=== PATIENT | male | born 1975 | race Caucasian/White ===

== ENCOUNTER 2017-11-13 12:05 | Emergency (ER) | payer OTHER ==
--- NOTE | 2017-11-13 12:35 | EDM.PDOC ---
ED HPI GENERAL MEDICAL PROBLEM - General Chief Complaint: Chest Pain Stated Complaint: CHEST PAIN/DIZZINESS Time Seen by Provider: 11/13/17 12:18 Source of Information: Reports: Patient History Limitations: Reports: No Limitations - History of Present Illness INITIAL COMMENTS - FREE TEXT/NARRATIVE: The patient states that he had mild left-sided chest pain, left scapular pain, and lightheadedness this morning between 08:00 and 09:00, but that his symptoms became much more pronounced around 11:45, while grocery shopping. He became diaphoretic, and reports that he had dyspnea, even with minimal exertion. He acknowledges that he was feeling anxious. No nausea. The chest pain is dull in character, and he states that it is a pain, not a discomfort. It is worse with deep breaths, but he has not identified any other modifiers. No prior similar symptoms. Here in the ED, the patient's initial BP was 227/103, however, it is coming down without treatment. The patient does not have a PCP. Left Chest Pain Score (Numeric/FACES): 3 - Related Data Allergies Allergy/AdvReac Type Severity Reaction Status Date / Time Penicillins Allergy Hives Verified 11/13/17 14:21 Home Meds: Home Meds . [No Known Home Meds] 11/13/17 [History] Past Medical History HEENT History: Reports: Impaired Vision Endocrine/Metabolic History: Reports: Obesity/BMI 30+ Social & Family History - Family History Cardiac: Reports: CAD, High Cholesterol, [place] - Tobacco Use Smoking Status *Q: Current Every Day Smoker Years of Tobacco use: 21 Packs/Tins Daily: 1 Packs/Tins Daily Comment: Down from 1.5 ppd - Caffeine Use Caffeine Use: Reports: Coffee - Alcohol Use Alcohol Use History: Yes Alcohol Use Frequency: Socially - Recreational Drug Use Recreational Drug Use: Yes Drug Use in Last 12 Months: No Recreational Drug Type: Reports: Marijuana/Hashish (last 2012) - Living Situation & Occupation Living situation: Reports: Single, with Significant Other (Girlfriend) Occupation: Employed ([employer]) ED ROS GENERAL - Review of Systems Review Of Systems: ROS reveals no pertinent complaints other than HPI. ED EXAM, GENERAL - Physical Exam Exam: See Below Exam Limited By: No Limitations General Appearance: Alert, WD/WN, No Apparent Distress Eye Exam: Bilateral Eye: Normal Inspection Ears: Normal External Exam, Hearing Grossly Normal Nose: Normal Inspection, No Blood Throat/Mouth: Normal Inspection, Normal Lips, Normal Voice, No Airway Compromise Head: Atraumatic, Normocephalic Neck: Normal Inspection, Full Range of Motion Respiratory/Chest: No Respiratory Distress, Lungs Clear, Normal Breath Sounds, No Accessory Muscle Use, Chest Non-Tender (including to left upper chest) Cardiovascular: Normal Peripheral Pulses, Regular Rate, Rhythm, No Edema, No Gallop, No JVD, No Murmur, No Rub Peripheral Pulses: 4+: Radial (L), Radial (R) GI/Abdominal: Normal Bowel Sounds, Soft, Non-Tender, No Organomegaly, No Distention, No Abnormal Bruit, No Mass, Other (Obese) (Male) Exam: Deferred Rectal (Males) Exam: Deferred Back Exam: Normal Inspection, Full Range of Motion, NT Extremities: Normal Inspection, Normal Range of Motion, No Pedal Edema, Normal Capillary Refill Neurological: Alert, Oriented, Normal Cognition, No Motor/Sensory Deficits Psychiatric: Normal Affect Skin Exam: Warm, Dry, Intact, Normal Color, Rash ("Fingerprint" rash on anterior chest - patient states that it is not a rash - suspect small blotches of erythema from direct finger pressure) EKG INTERPRETATION EKG Date: 11/13/17 Time: 12:15 Rhythm: NSR Rate (Beats/Min): 87 [place]: Normal P-Wave: Present QRS: Normal ST-T: Normal QT: Normal Comparison: NA - No Prior EKG Course - Vital Signs Last Recorded V/S: Last Vital Signs Temp 36.1 C 11/13/17 12:12 Pulse 88 11/13/17 12:12 Resp 18 11/13/17 12:12 BP 227/103 H 11/13/17 12:12 Pulse Ox 99 11/13/17 12:12 - Orders/Labs/Meds Orders: Active Orders 24 hr Category Date Time Status EKG Documentation Completion [RC] STAT Care 11/13/17 12:20 Active Chest 2V [CR] Stat Exams 11/13/17 12:28 Taken Labs: Laboratory Tests 11/13/17 11/13/17 11/13/17 Range/Units 12:26 12:26 12:26 WBC 7.95 (4.23-9.07) K/mm3 RBC 4.93 (4.63-6.08) M/mm3 Hgb 15.8 (13.7-17.5) gm/L Hct 45.6 (40.1-51.0) % MCV 92.5 H (79.0-92.2) fl MCH 32.0 (25.7-32.2) pg MCHC 34.6 (32.2-35.5) g/dl RDW Std Deviation 42.0 (35.1-43.9) fL Plt Count 217 (163-337) K/mm3 MPV 11.2 (9.4-12.3) fl Neutrophils % (Manual) 33 L (40-60) % Band Neutrophils % 0 (0-10) % Lymphocytes % (Manual) 56 H (20-40) % Atypical Lymphs % 0 % Monocytes % (Manual) 8 (2-10) % Eosinophils % (Manual) 2 (0.8-7.0) % Basophils % (Manual) 1 (0.2-1.2) Platelet Estimate Adequate RBC Morph Comment Normal PT 9.9 (8.0-13.0) SECONDS INR 0.93 APTT 27 (22-36) SECONDS D-Dimer, Quantitative 0.20 (0.19-0.59) mg/L Sodium 140 (136-145) mEq/L Potassium 4.2 (3.5-5.1) mEq/L Chloride 103 (98-107) mEq/L Carbon Dioxide 28 (21-32) mEq/L Anion Gap 13.2 (5-15) BUN 12 (7-18) mg/dL Creatinine 0.8 (0.7-1.3) mg/dL Est Cr Clr Drug Dosing 129.42 mL/min Estimated GFR (MDRD) > 60 (>60) mL/min BUN/Creatinine Ratio 15.0 (14-18) Glucose 102 (74-106) mg/dL Calcium 9.4 (8.5-10.1) mg/dL Total Bilirubin 0.3 (0.2-1.0) mg/dL AST 34 (15-37) U/L ALT 69 H (16-63) U/L Alkaline Phosphatase 112 (46-116) U/L Troponin I < 0.017 (0.00-0.056) ng/mL NT-Pro-B Natriuret Pep (0-125) pg/mL Total Protein 7.4 (6.4-8.2) g/dl Albumin 4.1 (3.4-5.0) g/dl Globulin 3.3 gm/dL Albumin/Globulin Ratio 1.2 (1-2) 11/13/17 11/13/17 Range/Units 12:26 13:36 WBC (4.23-9.07) K/mm3 RBC (4.63-6.08) M/mm3 Hgb (13.7-17.5) gm/L Hct (40.1-51.0) % MCV (79.0-92.2) fl MCH (25.7-32.2) pg MCHC (32.2-35.5) g/dl RDW Std Deviation (35.1-43.9) fL Plt Count (163-337) K/mm3 MPV (9.4-12.3) fl Neutrophils % (Manual) (40-60) % Band Neutrophils % (0-10) % Lymphocytes % (Manual) (20-40) % Atypical Lymphs % % Monocytes % (Manual) (2-10) % Eosinophils % (Manual) (0.8-7.0) % Basophils % (Manual) (0.2-1.2) Platelet Estimate RBC Morph Comment PT (8.0-13.0) SECONDS INR APTT (22-36) SECONDS D-Dimer, Quantitative (0.19-0.59) mg/L Sodium (136-145) mEq/L Potassium (3.5-5.1) mEq/L Chloride (98-107) mEq/L Carbon Dioxide (21-32) mEq/L Anion Gap (5-15) BUN (7-18) mg/dL Creatinine (0.7-1.3) mg/dL Est Cr Clr Drug Dosing mL/min Estimated GFR (MDRD) (>60) mL/min BUN/Creatinine Ratio (14-18) Glucose (74-106) mg/dL Calcium (8.5-10.1) mg/dL Total Bilirubin (0.2-1.0) mg/dL AST (15-37) U/L ALT (16-63) U/L Alkaline Phosphatase (46-116) U/L Troponin I < 0.017 (0.00-0.056) ng/mL NT-Pro-B Natriuret Pep 24 (0-125) pg/mL Total Protein (6.4-8.2) g/dl Albumin (3.4-5.0) g/dl Globulin gm/dL Albumin/Globulin Ratio (1-2) - Re-Assessments/Exams Free Text/Narrative Re-Assessment/Exam: 11/13/17 12:59 Two-view chest radiograph appears to be grossly normal. Cardiac silhouette is within normal limits. No pulmonary vascular congestion. No pleural effusions. No focal infiltrate. No pneumothorax. Formal read per the Radiologist pending. 11/13/17 13:01 Without treatment, the patient's blood pressure has decreased to 176/103, with a HR of 83. 11/13/17 13:26 The patient's initial workup is complete, and entirely normal. I have ordered a second troponin. 11/13/17 14:24 The patient's repeat troponin remained undetectable. 11/13/17 14:27 Test results discussed with the patient. Because the patient's pain was modified with deep breaths, his pain is most likely musculoskeletal in etiology , although anxiety could have played a role. The patient's blood pressure has remained elevated during his ED visit, but not so high as to require emergency treatment. I will refer the patient to Dr. Bansal for further evaluation and treatment of hypertension, as well as a general physical exam. Departure - Departure Time of Disposition: 14:27 Disposition: Home, Self-Care 01 Condition: Good Clinical Impression: Musculoskeletal chest pain - Discharge Information Referrals: PCP,None [Primary Care Provider] - Garry Bansal [Physician] - Forms: ED Department Discharge Additional Instructions: You were seen in the emergency room for left upper chest pain, lightheadedness, sweatiness, shortness of breath, and anxiety. Workup in the ER included blood work (including 2 sets of cardiac enzymes), an ECG, and a chest x-ray. Your entire workup was unremarkable. You have not suffered a heart attack. You do not have a blood clot in your lungs. You do not have a collapsed lung or pneumonia. Because your chest pain was worse with deep breaths, the source of your chest pain was MOST LIKELY musculoskeletal in etiology, although anxiety may have played a role, as well. We recommend that you take [id number] Tylenol or ibuprofen as needed for chest discomfort. Your blood pressure was elevated during your ER visit, but not so high that it required emergency treatment. Nevertheless, you likely have hypertension. We recommend that you follow-up with Dr. Bansal in the clinic for further evaluation of your blood pressure, as well as for a general physical exam. If any other problems, please do not hesitate to return to the ER. - My Orders Last 24 Hours: My Active Orders 11/13/17 12:20 EKG Documentation Completion [RC] STAT 11/13/17 12:28 Chest 2V [CR] Stat - Assessment/Plan Last 24 Hours: My Active Orders 11/13/17 12:20 EKG Documentation Completion [RC] STAT 11/13/17 12:28 Chest 2V [CR] Stat
--- NOTE | 2017-11-14 11:21 | CR ---
Chest: Two views of the chest were obtained. Comparison: No prior chest x-ray. Heart size and mediastinum are normal. Lungs are clear. Bony structures are unremarkable. Impression: 1. Nothing acute is identified on two-view chest x-ray. Diagnostic code #1
== END 2017-11-13 14:51 | disposition home or self-care (01) ==
LOC: JD.ED 12:05
DX: R07.89 Other chest pain (principal); E66.9 Obesity, unspecified; F17.210 Nicotine dependence, cigarettes, uncomplicated; Z88.0 Allergy status to penicillin; Z68.34 Body mass index [BMI] 34.0-34.9, adult
CPT/HCPCS: 36415; 71046; 71046-26; 80053; 83880; 84484; 85025; 85379; 85610; 85730; 93005; 93010; 99284-25; 99285-25

== ENCOUNTER 2018-02-11 22:39 | Emergency (ER) | payer OTHER ==
--- NOTE | 2018-02-11 23:10 | EDM.PDOC ---
ED HPI GENERAL MEDICAL PROBLEM - General Chief Complaint: Abdominal Pain Stated Complaint: ABDOMINAL PAIN Time Seen by Provider: 02/11/18 22:56 Source of Information: Reports: Patient History Limitations: Reports: No Limitations - History of Present Illness INITIAL COMMENTS - FREE TEXT/NARRATIVE: This is a 42-year-old male. He comes to the ER because he says he hasn't had a good bowel movement in quite some time. He is tried some Dulcolax suppositories on Tuesday but they didn't do anything. He states he hasn't really changed his diet in any way that might cause this. He is having liquid stools and he gets a lot of pain when he tries to have a bowel movement in the lower abdomen. He might be running a low-grade fever. He denies any cough congestion. Denies any urinary type symptoms. No nausea or vomiting. Lower Abdomen Pain Score (Numeric/FACES): 5 - Related Data Allergies Allergy/AdvReac Type Severity Reaction Status Date / Time Penicillins Allergy Hives Verified 11/13/17 14:21 Home Meds: Home Meds Hydrochlorothiazide 0 mg PO DAILY 02/11/18 [History] Lisinopril 20 mg PO DAILY 02/11/18 [History] Past Medical History - Past Health History Medical/Surgical History: Denies Medical/Surgical History HEENT History: Reports: Impaired Vision Cardiovascular History: Reports: Hypertension Other Gastrointestinal History: occasional contipation Endocrine/Metabolic History: Reports: Obesity/BMI 30+ Social & Family History - Family History Cardiac: Reports: CAD, High Cholesterol, [place] - Tobacco Use Smoking Status *Q: Current Every Day Smoker Years of Tobacco use: 20 Packs/Tins Daily: 0.7 - Caffeine Use Caffeine Use: Reports: Coffee, Tea - Recreational Drug Use Recreational Drug Use: No - Living Situation & Occupation Living situation: Reports: Single, with Significant Other (Girlfriend) Occupation: Employed ([employer]) ED ROS GENERAL - Review of Systems Review Of Systems: See Below Constitutional: Reports: Fever. Denies: Chills HEENT: Reports: No Symptoms Respiratory: Reports: No Symptoms Cardiovascular: Reports: No Symptoms Endocrine: Reports: No Symptoms GI/Abdominal: Reports: Abdominal Pain, Constipation, Diarrhea. Denies: Nausea, Vomiting : Reports: No Symptoms Musculoskeletal: Reports: No Symptoms Skin: Reports: No Symptoms Neurological: Reports: No Symptoms Psychiatric: Reports: No Symptoms Hematologic/Lymphatic: Reports: No Symptoms ED EXAM, GI/ABD - Physical Exam Exam: See Below Exam Limited By: No Limitations General Appearance: Alert, WD/WN, No Apparent Distress Eyes: Bilateral: Normal Appearance Ears: Normal External Exam, Normal [place], Normal TMs Nose: Normal Inspection Throat/Mouth: Normal Inspection, Normal Lips, Normal Voice, No Airway Compromise Head: Normocephalic Neck: Supple Respiratory/Chest: No Respiratory Distress, Lungs Clear, Normal Breath Sounds Cardiovascular: Regular Rate, Rhythm, No Murmur GI/Abdominal Exam: Soft, Other (Lightly distended but he really has no tenderness on palpation in the 4 quadrants, bowel sounds are positive but they are decreased, he has some generalized soreness of the abdomen but no masses and no rebound) Back Exam: Normal Inspection, Full Range of Motion Extremities: Normal Inspection, Normal Range of Motion Neurological: Alert, Oriented Psychiatric: Normal Affect, Normal Mood Skin Exam: Warm, Dry Course - Vital Signs Last Recorded V/S: Last Vital Signs Temp 96.3 F 02/11/18 22:47 Pulse 115 H 02/11/18 22:47 Resp 20 02/11/18 22:47 BP 151/88 H 02/11/18 22:47 Pulse Ox 95 02/11/18 22:47 - Orders/Labs/Meds Orders: Active Orders 24 hr Category Date Time Status Enema [RC] ASDIRECTED Care 02/12/18 01:00 Active KUB [Abdomen 1V Flat] [CR] Stat Exams 02/11/18 23:06 Taken Labs: Laboratory Tests 02/11/18 02/11/18 Range/Units 23:20 23:20 WBC 20.51 H (4.23-9.07) K/mm3 RBC 4.27 L (4.63-6.08) M/mm3 Hgb 13.9 (13.7-17.5) gm/L Hct 40.2 (40.1-51.0) % MCV 94.1 H (79.0-92.2) fl MCH 32.6 H (25.7-32.2) pg MCHC 34.6 (32.2-35.5) g/dl RDW Std Deviation 41.1 (35.1-43.9) fL Plt Count 196 (163-337) K/mm3 MPV 11.3 (9.4-12.3) fl Neut % (Auto) 77.8 H (34.0-67.9) % Lymph % (Auto) 11.2 L (21.8-53.1) % [place] % (Auto) 10.3 (5.3-12.2) % Eos % (Auto) 0.2 L (0.8-7.0) Baso % (Auto) 0.1 (0.1-1.2) % Neut # (Auto) 15.93 H (1.78-5.38) K/mm3 Lymph # (Auto) 2.30 (1.32-3.57) K/mm3 [place] # (Auto) 2.11 H (0.30-0.82) K/mm3 Eos # (Auto) 0.05 (0.04-0.54) K/mm3 Baso # (Auto) 0.03 (0.01-0.08) K/mm3 Manual Slide Review Abnormal smear Sodium 133 L (136-145) mEq/L Potassium 3.7 (3.5-5.1) mEq/L Chloride 96 L (98-107) mEq/L Carbon Dioxide 25 (21-32) mEq/L Anion Gap 15.7 H (5-15) BUN 16 (7-18) mg/dL Creatinine 1.1 (0.7-1.3) mg/dL Est Cr Clr Drug Dosing 94.13 mL/min Estimated GFR (MDRD) > 60 (>60) mL/min BUN/Creatinine Ratio 14.5 (14-18) Glucose 136 H (74-106) mg/dL Calcium 9.2 (8.5-10.1) mg/dL Total Bilirubin 1.6 H (0.2-1.0) mg/dL AST 12 L (15-37) U/L ALT 26 (16-63) U/L Alkaline Phosphatase 95 (46-116) U/L Total Protein 7.7 (6.4-8.2) g/dl Albumin 3.3 L (3.4-5.0) g/dl Globulin 4.4 gm/dL Albumin/Globulin Ratio 0.8 L (1-2) - Radiology Interpretation Free Text/Narrative:: KUB of the abdomen does suggest a lot of stool in his colon. He also appears to have a mild rectal impaction - Re-Assessments/Exams Free Text/Narrative Re-Assessment/Exam: 02/12/18 01:04 I spoke to the patient regarding the KUB as well as the blood work and then needs to have an enema to break up the impaction so he can have normal bowel movements and not have rectal cramping. 02/12/18 01:38 Patient has had several large bowel movements with the enema and he feels much better the wheeze sore and he wants to go home. I encouraged him to start taking Dulcolax tablets or capsules twice a day until he has nice smooth loose stools. Departure - Departure Time of Disposition: 01:39 Disposition: Home, Self-Care 01 Condition: Good Clinical Impression: Fecal impaction in rectum Constipation Qualifiers: Constipation type: unspecified constipation type Qualified Code(s): K59.00 - Constipation, unspecified - Discharge Information Referrals: Garry Bansal [Primary Care Provider] - Forms: ED Department Discharge Additional Instructions: Take the Dulcolax capsules twice a day and continue to do so until you have nice soft stools, drink lots of water and juices to stay well-hydrated, follow up with your family doctor as needed and return to the ER as needed - My Orders Last 24 Hours: My Active Orders 02/11/18 23:06 KUB [Abdomen 1V Flat] [CR] Stat 02/12/18 01:00 Enema [RC] ASDIRECTED - Assessment/Plan Last 24 Hours: My Active Orders 02/11/18 23:06 KUB [Abdomen 1V Flat] [CR] Stat 02/12/18 01:00 Enema [RC] ASDIRECTED
--- NOTE | 2018-02-13 06:59 | CR ---
Abdomen: Supine view of the abdomen was obtained. Comparison: No previous study. Calcifications are seen within the pelvis compatible with phleboliths. Mild joint space narrowing is seen within the hips. Sacroiliac joints are within normal limits. Bowel gas pattern appears normal. No discrete soft tissue abnormality is seen. Structures appear within normal limits. Impression: 1. Incidental findings. Nothing acute is seen. Diagnostic code #2
== END 2018-02-12 01:46 | disposition home or self-care (01) ==
LOC: JD.ED 22:39
DX: K56.41 Fecal impaction (principal); I10 Essential (primary) hypertension; F17.210 Nicotine dependence, cigarettes, uncomplicated; Z88.0 Allergy status to penicillin; Z79.899 Other long term (current) drug therapy
CPT/HCPCS: 36415; 74018; 74018-26; 80053; 85025; 99283; 99284

== ENCOUNTER 2023-08-25 11:59 | Day surgery (SDC) | payer BC ==
[~2023-08-25 11:59] MED LIST: Lactated Ringers 1,000 ML IV SCH; Sodium Chloride 0.9% 10 ML Syringe FLUSH PRN; Sodium Chloride 0.9% 10 ML Syringe FLUSH SCH
[2023-08-25] MEDS ORDERED: Propofol 200 MG/20 ML SDV ONE ×2 (14:49→15:18)
[2023-08-25] MEDS ORDERED: Lidocaine 1% 6 ML ONE (14:50)
== END 2023-08-25 16:05 | disposition home or self-care (01) ==
LOC: JD.SDS 11:59
PROVIDERS: ATTEND Surgery
DX: Z12.11 Encounter for screening for malignant neoplasm of colon (principal); D12.3 Benign neoplasm of transverse colon; D12.4 Benign neoplasm of descending colon; K63.5 Polyp of colon; K62.1 Rectal polyp; K57.30 Diverticulosis of large intestine without perforation or abscess without bleeding; K64.4 Residual hemorrhoidal skin tags; I10 Essential (primary) hypertension; E66.9 Obesity, unspecified; Z68.35 Body mass index [BMI] 35.0-35.9, adult; E78.5 Hyperlipidemia, unspecified; G47.33 Obstructive sleep apnea (adult) (pediatric); F17.210 Nicotine dependence, cigarettes, uncomplicated; Z79.899 Other long term (current) drug therapy; Z88.0 Allergy status to penicillin
CPT/HCPCS: 45380; 45385; J2704; J7120; J3490

== ENCOUNTER 2024-05-07 14:13 | Emergency (ER) | payer BC ==
[2024-05-07] MEDS ORDERED: Sodium Chloride 0.9% 100 ML IV SCH (14:45)
[2024-05-07] MEDS: Iopamidol 755 Mg/ML 100 ML Bottle IVPUSH ONE (15:28)
[2024-05-07 15:31] LABS: BASOPHILS ABSOLUTE AUTO 0.1 K/mm3 (0.0-0.2); BASOPHILS PERCENT AUTO 0.6 % (0.0-1.0); EOSINOPHILS ABSOLUTE AUTO 0.5 K/mm3 (0.0-0.4); EOSINOPHILS PERCENT AUTO 3.3 % (0.0-6.0); HEMATOCRIT 45.3 % (42.0-52.0); HEMOGLOBIN 15.9 gm/dl (14.0-18.0); IMMATURE GRAN ABSOLUTE AUTO 0.06 K/mm3 (0.00-0.05); IMMATURE GRAN PERCENT AUTO 0.4 % (0.0-0.4); LYMPHOCYTES ABSOLUTE AUTO 2.2 K/mm3 (1.0-4.8); MEAN CORPUSCULAR HEMOGLOBIN 32.5 pg (28.0-32.0); MEAN CORPUSCULAR HGB CONC 35.1 g/dl (32.0-36.0); MEAN CORPUSCULAR VOLUME 92.6 fl (83.0-99.0); MEAN PLATELET VOLUME 11.7 fl (9.4-12.4); MONOCYTES ABSOLUTE AUTO 1.2 K/mm3 (0.0-0.8); MONOCYTES PERCENT AUTO 7.7 % (0.0-8.0); NEUTROPHILS ABSOLUTE AUTO 11.6 K/mm3 (1.8-7.7); PLATELET COUNT,PLT 239 K/mm3 (150-400); RED BLOOD CELL COUNT 4.89 M/mm3 (4.52-5.90); WHITE BLOOD CELL COUNT,WBC 15.68 K/mm3 (3.9-11.3)
[2024-05-07 15:42] LABS: A/G RATIO 1.2 (1-2); ALBUMIN 3.9 g/dl (3.4-5.0); ANION GAP 10.1 (5-15); BILIRUBIN TOTAL 0.4 mg/dL (0.2-1.0); BUN/CREATININE RATIO 12.5 (14-18); CALCIUM 8.9 mg/dL (8.5-10.1); CREATININE 0.8 mg/dL (0.7-1.3); EST CRCL DRUG DOSING (CG) 121.58 mL/min; POTASSIUM,K 4.1 mEq/L (3.5-5.1); PROTEIN TOTAL,TP 7.2 g/dl (6.4-8.2)
[2024-05-07] MEDS: Labetalol 100 MG/20 ML MDV IVPUSH ONE ×2 (15:43→16:42)
[2024-05-07 17:55] LABS: APPEARANCE,URINE CLEAR (Clear); BILIRUBIN,URINE NEGATIVE (Negative); COLOR,URINE YELLOW (Yellow); GLUCOSE,URINE NEGATIVE (Negative); KETONES,URINE NEGATIVE (Negative); LEUKOCYTE ESTERASE,URINE NEGATIVE (Negative); NITRITE,URINE NEGATIVE (Negative); OCCULT BLOOD,URINE NEGATIVE (Negative); PH,URINE 6.5 (5.0-8.0); PROTEIN,URINE NEGATIVE (Negative); UROBILINOGEN,URINE 0.2 (0.2-1.0)
[2024-05-07 19:08] LABS: CORONAVIRUS COVID-19 NAA NEGATIVE (NEGATIVE); INFLUENZA A NAA NEGATIVE (NEGATIVE); RESPIRATORY SYNCYTIAL VIR NAA NEGATIVE (NEGATIVE)
[2024-05-07] MEDS: amLODIPine 10 MG Tab PO ONE (19:30)
== END 2024-05-07 20:02 | disposition home or self-care (01) ==
LOC: JD.ED 14:13
DX: I10 Essential (primary) hypertension (principal); E66.9 Obesity, unspecified; Z68.34 Body mass index [BMI] 34.0-34.9, adult; Z88.0 Allergy status to penicillin; Z79.899 Other long term (current) drug therapy
CPT/HCPCS: 0241U; 36415; 71275; 72191; 74175; 80053; 81003; 83605; 84484; 85025; 86140; 87040; 93005; 96374; 96376; 99284; A9270; J1921; Q9967